=== PATIENT | female | born 1955 | race Caucasian/White ===

== ENCOUNTER 2018-02-26 06:13 | Day surgery (SDC) | payer BC ==
[~2018-02-26 06:13] MED LIST: Midazolam 1 MG/ML 2 ML SDV ONE; fentaNYL 100 MCG/2 ML SDV ONE
[2018-02-26] MEDS ORDERED: fentaNYL 100 MCG/2 ML SDV IV ONE ×3 (06:14→08:07)
[2018-02-26] MEDS ORDERED: Midazolam 1 MG/ML 2 ML SDV IV ONE ×3 (06:14→08:08)
[2018-02-26] MEDS ORDERED: Dextrose 5%-0.45% NaCl 1,000 ML IV SCH (06:30)
--- NOTE | 2018-02-26 15:08 | OR ---
DATE: 02/26/2018 PROCEDURE PERFORMED: Esophagogastroduodenoscopy, argon plasma coagulative therapy, and multiple pinch biopsies. INSTRUMENT USED: GIF-H180 Olympus video panendoscope. PREMEDICATIONS: No oral topical anesthesia used. Fentanyl 100 mcg intravenous, Versed 1.5 mg intravenous. The procedure was done under pulse oximetry, BP recording, and manager of sales. INDICATION: The patient with iron-deficiency anemia and progressive weight loss. DESCRIPTION OF PROCEDURE: Esophagogastroduodenoscopy was performed for detection of any active erosive lesions, H. pylori status to be determined, biopsies to be obtained for celiac disease if indicated, endoscopic hemostasis therapy if needed. The scope was passed with ease. Adequate visualization of the esophagus was made from [id number] areas. No upper esophageal lesions identified. No distal esophageal stricture. No uphill or downhill esophageal varices. No Jocelyn-Garrido tear. No evidence of erosive esophagitis by Norman criteria. No esophageal polyp or tumor mass identified. Z-line was seen at around 42 cm distal to the oral verge, configuration consistent with grade 1 by Zapp classification. No proximal gastric varices noted. Gastric fundus examination by retroflexion showed no polypoid lesions. No gastric ulcer, malignant mass, or vascular ectasia identified. Duodenal bulb showed no ulcer. Visualized second part of the duodenum showed multiple, small angiodysplastic areas, 4 in number, photographs were taken. APC therapy was given. Photographs were taken of the second part of the duodenum, duodenal bulb, gastric antrum, fundus, as well as distal esophagus. Multiple pinch biopsies, 4 in number were taken from different areas of the second part of the duodenum and tissues were also obtained from the duodenal bulb at 9 and 12 o'clock positions and sent for any histopathologic evidence of celiac disease. Multiple pinch biopsies were taken from the gastric antrum and proximal body and sent for PyloriTek test for H. pylori and histopathology. No bleeding was noted from any of the visualized areas at the completion of examination. IMPRESSION: Angiodysplasia, second part of the duodenum. The patient tolerated the procedure well. [facility] /[id number]
== END 2018-02-26 10:05 | disposition home or self-care (01) ==
LOC: DL.ENDO 06:13
PROVIDERS: ATTEND Internal Medicine Gastroenterology
DX: D50.9 Iron deficiency anemia, unspecified (principal); R63.4 Abnormal weight loss; K31.819 Angiodysplasia of stomach and duodenum without bleeding; K31.9 Disease of stomach and duodenum, unspecified; F17.210 Nicotine dependence, cigarettes, uncomplicated; E88.09 Other disorders of plasma-protein metabolism, not elsewhere classified; E83.51 Hypocalcemia; Z88.0 Allergy status to penicillin
CPT/HCPCS: 43239; 43270; 87077; J2250; J3010; J7042

== ENCOUNTER 2024-09-03 09:51 | Emergency (ER) | payer MEDICARE ==
[2024-09-03] MEDS ORDERED: Sodium Chloride 0.9% 10 ML Syringe FLUSH PRN (10:08)
[2024-09-03 10:25] LABS: BASOPHILS PERCENT AUTO 0.1 % (0.0-1.0); EOSINOPHILS PERCENT AUTO 0.1 % (1.0-3.0); HEMATOCRIT 25.9 % (37.0-47.0); HEMOGLOBIN 7.3 g/dL (12.0-16.0); LYMPHOCYTES PERCENT AUTO 1.3 % (20.5-50.1); MEAN CORPUSCULAR HEMOGLOBIN 21.5 pg (27.0-34.0); MEAN CORPUSCULAR HGB CONC 28.2 g/dL (33.0-35.0); MEAN CORPUSCULAR VOLUME 76.2 fL (80-100); MONOCYTES PERCENT AUTO 6.3 % (2-8); NEUTROPHILS PERCENT AUTO 92.2 % (42.2-75.2); PLATELET COUNT,PLT 273 10^3/uL (150-450); WHITE BLOOD CELL COUNT,WBC 17.8 10^3/uL (5.0-10.0)
[2024-09-03 10:46] LABS: PERCENT FE SATURATION 5.1 % (20.0-50.0)
[2024-09-03 10:49] LABS: ALBUMIN 2.8 g/dL (3.4-5.0); BILIRUBIN TOTAL 0.7 mg/dL (0.2-1.0); BUN/CREATININE RATIO 7.2 (No establ ref range); CALCIUM 8.6 mg/dL (8.5-10.1); CREATININE 0.83 mg/dL (0.55-1.02); EST CRCL DRUG DOSING (CG) 63.02 mL/min; MAGNESIUM 1.8 mg/dL (1.8-2.4); PROTEIN TOTAL,TP 6.9 g/dL (6.4-8.2)
[2024-09-03 10:52] LABS: INR 1.1 (0.9-1.2)
[2024-09-03 11:07] LABS: ANION GAP 19.1 mEq/L (7-13); POTASSIUM,K 4.1 mmol/L (3.5-5.1)
[2024-09-03 11:08] LABS: A/G RATIO 0.68
[2024-09-03] MEDS: Levofloxacin/Dextrose 5%-Water 750 MG in Premix Bag 1 BAG IV ONE (11:13)
[2024-09-03] MEDS: Sodium Chloride 0.9% 1,000 ML IV ONE (11:19)
[2024-09-03] MEDS: Nicotine 21 MG/24 Hr Patch TRDERM ONE (12:19)
[2024-09-03] MEDS: LORazepam 2 MG/ML SDV IVPUSH ONE (12:25)
[2024-09-03] MEDS: Diltiazem 25 MG/5 ML SDV IVPUSH ONE (12:30)
[2024-09-03] MEDS: Digoxin 500 MCG/2 ML Amp IVPUSH ONE (12:47)
[2024-09-03 12:52] LABS: C-REACTIVE PROTEIN 7.01 ng/dL (<=0.50)
[2024-09-03] MEDS: Pantoprazole 40 MG in Sodium Chloride 0.9% 100 ML IV SCH (13:02)
[2024-09-03] MEDS: Metoprolol Tartrate 5 MG/5 ML SDV IVPUSH ONE (13:21)
[2024-09-03 15:11] VITALS: BP 167/91; PULSE 107
== END 2024-09-03 15:00 | disposition critical access hospital (66) ==
LOC: DL.ED 09:51
DX: D50.9 Iron deficiency anemia, unspecified (principal); J18.9 Pneumonia, unspecified organism; R79.89 Other specified abnormal findings of blood chemistry; E87.1 Hypo-osmolality and hyponatremia; I48.91 Unspecified atrial fibrillation; F17.210 Nicotine dependence, cigarettes, uncomplicated; D72.825 Bandemia; Z78.9 Other specified health status; Z88.0 Allergy status to penicillin
CPT/HCPCS: 36415; 36430; 70450; 71046; 80053; 80307; 82272; 83540; 83550; 83605; 83735; 83880; 84145; 84484; 85025; 85610; 86140; 86850; 86900; 86901; 86920; 86922; 87428-QW; 93005; 93010; 96365; 96366; 96367; 96375; 99285; 99285-25; A9270-GY; J1160; J1956; J2060; J2470; J3490; J7030; P9016

== ENCOUNTER 2024-09-12 12:09 | Emergency (ER) | payer MEDICARE ==
[2024-09-12] MEDS ORDERED: Naloxone 2 MG/2 ML Syringe IVPUSH PRN (12:32)
[2024-09-12] MEDS: HYDROmorphone 0.5 MG/0.5 ML Syringe IVPUSH ONE ×2 (12:48→15:37)
[2024-09-12 12:55] LABS: BASOPHILS PERCENT AUTO 0.4 % (0.0-1.0); EOSINOPHILS PERCENT AUTO 0.1 % (1.0-3.0); HEMATOCRIT 23.5 % (37.0-47.0); MEAN CORPUSCULAR HEMOGLOBIN 23.9 pg (27.0-34.0); MEAN CORPUSCULAR HGB CONC 28.9 g/dL (33.0-35.0); MEAN CORPUSCULAR VOLUME 82.5 fL (80-100); MONOCYTES PERCENT AUTO 6.9 % (2-8); NEUTROPHILS PERCENT AUTO 89.6 % (42.2-75.2); PLATELET COUNT,PLT 564 10^3/uL (150-450); RED BLOOD CELL COUNT 2.85 10^6/uL (4.2-5.4); WHITE BLOOD CELL COUNT,WBC 18.9 10^3/uL (5.0-10.0)
[2024-09-12 13:01] LABS: HEMOGLOBIN 6.8 g/dL (12.0-16.0)
[2024-09-12 13:09] LABS: CALCIUM 9.1 mg/dL (8.5-10.1); CREATININE 0.85 mg/dL (0.55-1.02); EST CRCL DRUG DOSING (CG) 51.28 mL/min
[2024-09-12 13:13] LABS: ANION GAP 14.7 mEq/L (7-13); POTASSIUM,K 4.7 mmol/L (3.5-5.1)
[2024-09-12 13:58] LABS: INR 1.4 (0.9-1.2); PROTHROMBIN TIME 14.7 SEC (9.0-12.0)
[2024-09-12] MEDS: Nicotine 21 MG/24 Hr Patch TRDERM ONE (15:34)
== END 2024-09-12 15:54 ==
LOC: DL.ED 12:09
DX: M48.54XA Collapsed vertebra, not elsewhere classified, thoracic region, initial encounter for fracture (principal); Z88.0 Allergy status to penicillin
CPT/HCPCS: 36415; 72128; 72131; 80048; 85025; 85610; 96374; 96376; 99284; 99285; A9270